=== PATIENT | male | born 1980 | race Caucasian/White ===

== ENCOUNTER 2018-05-15 17:34 | Emergency (ER) | payer MEDICAID ==
[~2018-05-15] VITALS: Ht 177.8 cm; Wt 97.3 kg
[2018-05-15] MEDS ORDERED: normal saline 1000ML IV soln IVB ONE (18:15)
[2018-05-15] MEDS ORDERED: ketorolac trometh. 30mg/ml inj. IV ONE (18:15)
[2018-05-15] MEDS ORDERED: ondansetron/PF 4mg/2ml inj IV ONE (18:15)
[2018-05-15] MEDS ORDERED: morphine 4 MG/ML inj SYRINge IV PRN (18:15)
[2018-05-15 18:19] LABS: BASOPHILS % (AUTO) 0.3 % (0-1); EOSINOPHILS # (AUTO) 0.1 X10'3 (0-0.9); HEMOGLOBIN 15.6 g/dl (14.0-17.9); LYMPHOCYTES # (AUTO) 2.4 X10'3 (1.1-4.8); LYMPHOCYTES % (AUTO) 22.3 % (21-51); MEAN CORPUSCULAR HEMOGLOBIN 26.9 PG (27.0-31.0); MEAN CORPUSCULAR HGB CONC 33.1 % (33.0-36.5); MEAN CORPUSCULAR VOLUME 81.3 FL (78-98); MEAN PLATELET VOLUME 6.7 FL (7.4-10.4); MONOCYTES # (AUTO) 0.6 X10'3 (0-0.9); NEUTROPHILS # (AUTO) 7.6 X10'3 (1.8-7.7); NEUTROPHILS % (AUTO) 70.4 % (42-75); PLATELET COUNT 283 X10'3 (140-440); RED BLOOD COUNT 5.78 X10'6 (4.70-6.10); RED CELL DISTRIBUTION WIDTH 13.6 % (11.5-14.5); WHITE BLOOD COUNT 10.8 X10'3 (4.5-11.0)
[2018-05-15 18:34] LABS: ALANINE AMINOTRANSFERASE 115 U/L (12-78); ALBUMIN/GLOBULIN RATIO 1.1 (1.1-1.5); ALKALINE PHOSPHATASE 57 IU/L (46-116); ANION GAP 7 (8-16); ASPARTATE AMINO TRANSFERASE 36 U/L (10-37); BILIRUBIN,TOTAL 0.7 MG/DL (0.1-1.0); BLOOD UREA NITROGEN 10 MG/DL (7-18); BUN/CREATININE RATIO 7.5 (5.4-32.0); CALCIUM 9.2 MG/DL (8.5-10.1); CHLORIDE 104 MMOL/L (99-107); CREATININE 1.33 MG/DL (0.60-1.10); GLUCOSE 121 MG/DL (70-104); POTASSIUM 4.1 MMOL/L (3.5-5.1); SODIUM 140 MMOL/L (135-145); TOTAL CARBON DIOXIDE 29.3 MMOL/L (24-32); TOTAL PROTEIN 7.5 G/DL (6.4-8.2); eGFR 60 ML/MIN
[2018-05-15 18:47] LABS: CLARITY,URINE SLIGHTLY CLOUDY (Clear); COLOR,URINE AMBER (Yellow); GLUCOSE, URINE NEGATIVE (Neg); KETONES,URINE NEGATIVE (Neg); LEUKOCYTE ESTERASE ,URINE NEGATIVE (Neg); NITRITES, URINE NEGATIVE (Neg); OCCULT BLOOD,URINE LARGE (Neg); PH,URINE 6.5 (4.8-8.0); PROTEIN,URINE NEGATIVE (Neg)
[2018-05-15 18:48] LABS: UA COLLECTION TYPE URINAL
[2018-05-15 18:50] VITALS: BP 151/85
[2018-05-15 19:15] LABS: BACTERIA,URINE NONE SEEN /HPF (Neg); MUCUS STRANDS NONE SEEN /LPF (Neg); RBC,URINE TNTC /HPF (0-2); SQUAMOUS EPITHELIAL CELL,UR FEW /LPF (FEW); WBC,URINE NONE SEEN /HPF (0-4)
[2018-05-15] MEDS ORDERED: HYDR-565 PO (19:19)
[2018-05-15] MEDS ORDERED: HYDROcodone/acetaminophen 10/325mg tab PO ONE (19:20)
== END 2018-05-15 19:41 | disposition home or self-care (01) ==
LOC: ER 17:35
DX: N20.0 Calculus of kidney (principal); N23 Unspecified renal colic
CPT/HCPCS: 36415; 74176; 80053; 81001; 85025; 85610; 96374; 96375; 99285; J1885; J2270; J2405; J7030

== ENCOUNTER 2018-10-02 16:50 | Emergency (ER) | payer MEDICAID ==
[~2018-10-02] VITALS: Ht 177.8 cm; Wt 87.9 kg
[2018-10-02 17:02] VITALS: BP 116/110
[2018-10-02] MEDS ORDERED: CEPH-572 PO (17:39)
== END 2018-10-02 17:53 | disposition home or self-care (01) ==
LOC: ER 16:51
DX: F32.9 Major depressive disorder, single episode, unspecified (principal); L03.012 Cellulitis of left finger; K21.9 Gastro-esophageal reflux disease without esophagitis; F15.10 Other stimulant abuse, uncomplicated; F17.200 Nicotine dependence, unspecified, uncomplicated
CPT/HCPCS: 99284

== ENCOUNTER 2025-09-12 15:13 | Emergency (ER) | payer MEDICARE, MEDICAID ==
[~2025-09-12] VITALS: Ht 177.8 cm; Wt 91.0 kg
[~2025-09-12 15:13] MED LIST: ATOR-429 PO; CARV-50 PO; CHLO25TA10 PO; LISI20TA28 PO; OMEP40CA21 PO
[2025-09-12 15:23] VITALS: TEMP 98.7
--- NOTE | 2025-09-12 15:30 | Physician Documentation ---
History of Present Illness ~ Chief Complaint: ETOH Withdrawl Stated Complaint: ALCOHOL WITHDRAW Time Seen by MD: 15:24 Primary Medical Doctor: [facility] HPI Or any 5-year-old male presents to the ED after experiencing ETOH withdrawal symptoms today. States his last drink was at 7:00 a.m. this morning. He adds that he has been drinking approximately 1/5 of Tristin Joseph daily for the last 30 days. Says that his whole life he has four falls anxiety believes this may have led to an alcohol problem. In addition he has had stents placed and has been out of his Eliquis for an extended period of time. Complains ofchest pain that is reproducible with palpation Medication Reconciliation Allergies: Coded Allergies: No Known Allergies (Unverified , 09/12/25) Scheduled Atorvastatin Calcium* (Lipitor*), 1 TAB PO DAILY, (Reported) Carvedilol* (Coreg*), 1 TAB PO Q12H, (Reported) Chlordiazepoxide Hcl (Librium), 25 MG PO TID Chlorthalidone (Chlorthalidone), 1 TAB PO DAILY, (Reported) Lisinopril (Lisinopril), 1 TAB PO DAILY, (Reported) Naltrexone Hcl (Naltrexone Hcl), 1 TAB PO DAILY Omeprazole (Prilosec), 1 CAP PO DAILY, (Reported) Past Medical History Past Medical History: GERD, Depression Past Surgical History: noncontributory Drug Use: methamphetamine Lives with: Alone Lives In: Home Physical Exam Physical Exam General: Alert, no apparent distress. HEENT: PERRL, EOMI, no injection, moist mucous membranes. Neck: Full range of motion. Respiratory: Lungs clear, no respiratory distress. Chest: No accessory muscle use. Cardiovascular: Regular rate and rhythm, no murmurs. Gastrointestinal: Soft, nontender, nondistended. Bowels sounds present. Extremities: Normal range of motion, no deformity. Neurologic: Oriented x4. Psychiatric: Normal mood and affect. Skin: Normal color, warm and dry. No edema, no ecchymosis. Progress Results/Orders Results/Orders Orders - DINA CACERES NP Ua W/Microscopic, Cult If Ind (09/12/25 16:43) Completed Orders - DINA CACERES NP Cbc/Diff (09/12/25 15:30) BMP (09/12/25 15:30) Lipase (09/12/25 15:30) CMP (09/12/25 15:30) Normal Saline 1000ml (0.9% Sodium Chlori (09/12/25 15:30) Diazepam Inj (Valium Inj) (09/12/25 15:30) Thiamine Inj. (Thiamine Inj.) (09/12/25 15:30) Folic Acid Inj. (Folic Acid Inj.) (09/12/25 15:30) Magnesium Sulf-Water 2g/50ml (Magnesium (09/12/25 15:30) Medications Received in ER Medications (Trade) Dose Ordered Sig/Ciara Route PRN Reason Start Time Stop Time Status Last Admin Dose Admin (0.9% sodium chloride (NS) 1000ml IV soln) 2,000 ml ONCE ONCE IVB 09/12/25 15:30 09/12/25 15:33 DC 09/12/25 15:52 2,000 ML (Valium inj) 10 mg ONCE ONCE IV 09/12/25 15:30 09/12/25 15:33 DC 09/12/25 15:54 10 MG (thiamine inj.) 100 mg ONCE ONCE IV 09/12/25 15:30 09/12/25 15:33 DC 09/12/25 15:53 100 MG (folic acid inj.) 1 mg ONCE ONCE IV 09/12/25 15:30 09/12/25 15:38 DC 09/12/25 16:31 1 MG Magnesium Sulfate 50 ml @ 0 mls/hr ONCE ONCE IV 09/12/25 15:30 09/12/25 15:33 DC 09/12/25 15:53 2 MLS/HR Vital Signs 09/12/25 09/12/25 09/12/25 09/12/25 15:23 15:32 15:54 17:03 Temp 98.7 Pulse 117 98 Resp 18 16 16 16 B/P (MAP) 166/109 169/113 (131) Pulse Ox 98 96 O2 Flow Rate 0 0 Laboratory Tests Test 09/12/25 15:47 09/12/25 16:43 White Blood Count 6.7 Red Blood Count 5.78 Hemoglobin 15.9 Hematocrit 48.3 Mean Corpuscular Volume 83.6 Mean Corpuscular Hemoglobin 27.5 Mean Corpuscular Hemoglobin Concent 32.9 L Red Cell Distribution Width 16.1 H Platelet Count 226 Mean Platelet Volume 6.3 L Neutrophils (%) (Auto) 63.1 Lymphocytes (%) (Auto) 27.3 Monocytes (%) (Auto) 8.7 Eosinophils (%) (Auto) 0.5 Basophils (%) (Auto) 0.4 Neutrophils # (Auto) 4.2 Lymphocytes # (Auto) 1.8 Monocytes # (Auto) 0.6 Eosinophils # (Auto) 0.0 Basophils # (Auto) 0.0 CBC Comment Sodium Level 144 Potassium Level 3.3 L Chloride Level 102 Carbon Dioxide Level 28.1 Anion Gap 14 Blood Urea Nitrogen 6 L Creatinine 0.94 Estimated GFR/1.73 m2 87 BUN/Creatinine Ratio 6.4 L Glucose Level 138 H Calcium Level 8.8 Total Bilirubin 2.0 H Aspartate Amino Transf (AST/SGOT) 273 H Alanine Aminotransferase (ALT/SGPT) 286 H Alkaline Phosphatase 78 Total Protein 7.4 Albumin 4.0 Globulin 3.4 Albumin/Globulin Ratio 1.2 Lipase 103 H Chemistry Comments Urine Specimen Description Cln catch midstream Urine Color Yellow Urine Clarity Slightly cloudy Urine pH 7.5 Urine Specific [place] 1.015 Urine Protein Negative Urine Glucose (UA) Negative Urine Ketones Trace H Urine Occult Blood Negative Urine Nitrite Negative Urine Bilirubin Negative Urine Urobilinogen 1.0 Urine Leukocyte Esterase Negative Volume Urine Centrifuged 10 ml Urine Comment Medical Decision Making Additional information obtaine: old records Findings Patient presented initially with signs of EtOH withdrawal. Provided him with a magnesium folic acid thiamine and fluid boluses and Valium. After receiving medications he reported improved symptoms. I discussed with him the discharge plan which will include Librium and naltrexone to prevent further EtOH exacerbations Laboratory values did show markedly elevated LFTs but his lipase was not overly concerning. He does not present with any signs the infectious processes that would require further evaluation. States his symptoms have mostly resolved. I discussed with him in order to stopped drinking he may need some further medical management in the outpatient setting. Differential Dx:Considerations: Intoxication - ETOH, Intoxication - other drug, Sub. Abuse -continuous, Sub. Abuse-intermittent, Skull fracture, Fracture - other bone, Personality disorder, Closed head injury, Cervical spine injury, Abrasion, Confusion, Hematoma, Laceration, Foreign body, Dehydration, Encephalopathy, Hepatitis, Pancreatitis, Thiamine deficiency, Other Departure Disposition: 01 HOME / SELF CARE / HOMELESS Impression: Primary Impression: Alcohol dependence Additional Impression: Alcohol withdrawal syndrome Condition: Stable Discharge Instructions: Alcohol Intoxication Referrals: NO PRIMARY CARE PROVIDER (PCP) Prescriptions Atorvastatin Calcium* (Lipitor*) 80 Mg Tablet 1 TAB PO DAILY for 30 Days, #30 TAB Prov: DINA CACERES NP 09/12/25 Chlorthalidone (Chlorthalidone) 25 Mg Tablet 1 TAB PO DAILY for 30 Days, #30 TAB 0 Refills Prov: DINA CACERES NP 09/12/25 Carvedilol (Carvedilol) 3.125 Mg Tablet 1 TAB PO Q12H for 30 Days, #60 TAB 0 Refills Prov: DINA CACERES NP 09/12/25 Naltrexone Hcl (Naltrexone Hcl) 50 Mg Tablet 1 TAB PO DAILY for 30 Days, #30 TAB 0 Refills Prov: DINA CACERES NP 09/12/25 Chlordiazepoxide Hcl (Librium) 25 Mg Capsule 25 MG PO TID for alcohol withdrawl for 5 Days, #15 CAP 0 Refills Prov: DINA CACERES NP 09/12/25 Education Educated: Patient Signature Scribe Signature: gt Attestation: Scribed for Dina Caceres Clinical Dental Technician by Dina Navarro NP . 09/12/25 16:30 DINA CACERES NP Sep 12, 2025 15:30
[2025-09-12] MEDS: normal saline 1000ML IV soln IVB ONE (15:52)
[2025-09-12] MEDS: thiamine 100mg/ml 2ml inj. IV ONE (15:53)
[2025-09-12] MEDS: magnesium sulf-water 2g/50mL 50 ML IV ONE (15:53)
[2025-09-12] MEDS: diazepam inj 5 MG/ML inj. IV ONE (15:54)
[2025-09-12 16:00] LABS: MEAN PLATELET VOLUME 6.3 FL (7.4-10.4); RED CELL DISTRIBUTION WIDTH 16.1 % (11.5-14.5)
[2025-09-12 16:14] LABS: CREATININE 0.94 MG/DL (0.60-1.10); TOTAL CARBON DIOXIDE 28.1 MMOL/L (24-32); eCRCL 102 ML/MIN; eGFR 87 ML/MIN
[2025-09-12] MEDS ORDERED: CHLO25CA10 PO (16:29)
[2025-09-12] MEDS ORDERED: NALT50TA5 PO (16:29)
[2025-09-12] MEDS: folic acid 1mg/0.2ml inj IV ONE (16:31)
[2025-09-12 17:03] VITALS: BP 169/113; PULSE 98; RESP 16; O2SAT 96
[2025-09-12 17:10] LABS: LEUKOCYTE ESTERASE ,URINE NEGATIVE (Neg); NITRITES, URINE NEGATIVE (Neg); OCCULT BLOOD,URINE NEGATIVE (Neg)
[2025-09-12 17:11] LABS: UA COLLECTION TYPE CLN CATCH MIDSTREAM
[2025-09-12] MEDS ORDERED: CHLO25TA10 PO (17:16)
[2025-09-12] MEDS ORDERED: ATOR-429 PO (17:16)
[2025-09-12] MEDS ORDERED: CARV3.122 PO (17:16)
[2025-09-12 17:27] LABS: AMORPHOUS URATES 1+; SQUAMOUS EPITHELIAL CELL,UR FEW /LPF (FEW)
[2025-09-12 17:28] LABS: FINE GRANULAR CAST 0-3 /LPF (NEGATIVE)
== END 2025-09-12 17:21 | disposition home or self-care (01) ==
LOC: ER 15:13
DX: F10.239 Alcohol dependence with withdrawal, unspecified (principal); F41.9 Anxiety disorder, unspecified; K21.9 Gastro-esophageal reflux disease without esophagitis; F32.A Depression, unspecified; F15.90 Other stimulant use, unspecified, uncomplicated; Z79.899 Other long term (current) drug therapy; Y90.9 Presence of alcohol in blood, level not specified; Z60.2 Problems related to living alone
CPT/HCPCS: 36415; 80053; 81001; 83690; 85025; 96365; 96375; 99284; J3360; J3411; J3490; J7030